=== PATIENT | male | born 1980 | race Caucasian/White ===

== ENCOUNTER 2019-01-05 19:00 | Emergency (ER) | payer MEDICAID, OTHER ==
[2019-01-05] MEDS ORDERED: Ketorolac 30 MG/ML SDV IVPUSH ONE (19:18)
[2019-01-05] MEDS ORDERED: Sodium Chloride 0.9% 10 ML Syringe FLUSH PRN (19:18)
[2019-01-05] MEDS ORDERED: Sodium Chloride 0.9% 1,000 ML IV ONE ×2 (19:18→20:40)
--- NOTE | 2019-01-05 19:29 | EDM.PDOC ---
ED HPI GENERAL MEDICAL PROBLEM - General Chief Complaint: General Stated Complaint: Possible kidney stone/right flank pain Time Seen by Provider: 01/05/19 19:15 Source of Information: Reports: Patient History Limitations: Reports: No Limitations - History of Present Illness INITIAL COMMENTS - FREE TEXT/NARRATIVE: 38 YO WM presents to ER complaining of right flank pain with hematuria which began this am. Pt reports he woke this am with hematuria and mild right flank pain but as the day progressed he developed more severe pain with episode of vomiting. Pt reports history of kidney stones and opioid abuse. Pt recently stoned methadone approximately 14 days ago. Pt denies any fever/chills, no abdominal pain, no testicular pain. Discussed trying to avoid opioids due to substance abuse issues but after Toradol/Ativan patient in much discomfort prompting dilaudid administration. Onset: Today Location: Reports: Back Quality: Reports: Dull, Sharp Severity: Severe Improves with: Reports: None Worsens with: Reports: None Associated Symptoms: Reports: No Other Symptoms, Nausea/Vomiting. Denies: Fever /Chills Right Lower Posterior Flank Pain Score (Numeric/FACES): 5 - Related Data Allergies Allergy/AdvReac Type Severity Reaction Status Date / Time No Known Drug Allergies Allergy Cannot Verified 01/05/19 20:00 Remember Home Meds: Home Meds Cephalexin [Keflex] 500 mg PO TID #40 capsule 01/05/19 [Rx] Phenazopyridine [Pyridium] 200 mg PO TID #6 tab 01/05/19 [Rx] ED ROS GENERAL - Review of Systems Review Of Systems: See Below Constitutional: Reports: No Symptoms HEENT: Reports: No Symptoms Respiratory: Reports: No Symptoms Cardiovascular: Reports: No Symptoms Endocrine: Reports: No Symptoms GI/Abdominal: Reports: Nausea, Vomiting : Reports: Flank Pain, Hematuria Musculoskeletal: Reports: Back Pain Skin: Reports: No Symptoms Neurological: Reports: No Symptoms Psychiatric: Reports: No Symptoms Hematologic/Lymphatic: Reports: No Symptoms Immunologic: Reports: No Symptoms ED EXAM, GENERAL - Physical Exam Exam: See Below Exam Limited By: No Limitations General Appearance: Alert, WD/WN, Moderate Distress Head: Atraumatic, Normocephalic Neck: Normal Inspection, Supple, Non-Tender, Full Range of Motion Respiratory/Chest: No Respiratory Distress, Lungs Clear, Normal Breath Sounds, No Accessory Muscle Use, Chest Non-Tender Cardiovascular: Normal Peripheral Pulses, Regular Rate, Rhythm, No Edema, No Gallop, No JVD, No Murmur, No Rub GI/Abdominal: Normal Bowel Sounds, Soft, Non-Tender, No Organomegaly, No Distention, No Abnormal Bruit, No Mass Back Exam: Full Range of Motion, CVA Tenderness (R) Extremities: Normal Inspection, Normal Range of Motion, Non-Tender, Normal Capillary Refill, No Pedal Edema Neurological: Alert, Oriented, CN II-XII Intact, Normal Cognition, Normal Gait, Normal Reflexes, No Motor/Sensory Deficits Psychiatric: Normal Affect, Normal Mood Skin Exam: Warm, Dry, Intact, Normal Color, No Rash Lymphatic: No Adenopathy Course - Vital Signs Last Recorded V/S: Last Vital Signs Temp 36.9 C 01/05/19 19:11 Pulse 118 H 01/05/19 19:11 Resp 22 H 01/05/19 19:11 BP 158/91 H 01/05/19 19:11 Pulse Ox 98 01/05/19 19:11 - Orders/Labs/Meds Orders: Active Orders 24 hr Category Date Time Status Peripheral IV Care [RC] . DIRECTED Care 01/05/19 19:18 Active CULTURE URINE [RM] Stat Lab 01/05/19 21:08 Ordered Sodium Chloride 0.9% [Normal Saline] 1,000 ml Med 01/05/19 20:40 Active IV .BOLUS Sodium Chloride 0.9% [Saline Flush] Med 01/05/19 19:18 Active 10 ml FLUSH Q8HR PRN Peripheral IV Insertion Adult [OM.PC] Routine Oth 01/05/19 19:18 Ordered Medication Orders Sodium Chloride (Normal Saline) 1,000 mls @ 999 mls/hr IV .BOLUS ONE Stop: 01/05/19 21:40 Last Admin: 01/05/19 20:45 Dose: 999 mls/hr Sodium Chloride (Saline Flush) 10 ml FLUSH Q8HR PRN PRN Reason: keep vein open Labs: Laboratory Tests 01/05/19 01/05/19 01/05/19 Range/Units 19:30 19:30 20:00 WBC 9.35 (5.00-10.00) 10^3/uL RBC 4.76 (4.50-6.00) 10^6/uL Hgb 14.5 (13.0-17.0) g/dL Hct 40.1 (40.0-52.0) % MCV 84.2 (82.0-92.0) fL MCH 30.5 (27.0-31.0) pg MCHC 36.2 H (32.0-36.0) g/dL RDW 11.9 (11.5-14.5) % Plt Count 280 (150-400) 10^3/uL MPV 10.7 H (7.4-10.4) fL Immature Gran % (Auto) 0.1 (0.0-5.0) % Neut % (Auto) 60.6 (50.0-70.0) % Lymph % (Auto) 32.4 (20.0-40.0) % [place] % (Auto) 6.5 (2.0-8.0) % Eos % (Auto) 0.2 L (1.0-3.0) % Baso % (Auto) 0.2 (0.0-1.0) % Immature Gran # (Auto) 0.01 (0.00-0.50) 10^3/uL Neut # (Auto) 5.66 (2.50-7.00) 10^3/uL Lymph # (Auto) 3.03 (1.00-4.00) 10^3/uL [place] # (Auto) 0.61 (0.10-0.80) 10^3/uL Eos # (Auto) 0.02 L (0.10-0.30) 10^3/uL Baso # (Auto) 0.02 (0.00-0.10) 10^3/uL Sodium 145 (136-145) mmol/L Potassium 3.4 (3.3-5.3) mmol/L Chloride 108 (98-115) mmol/L Carbon Dioxide 23.3 (21.0-32.0) mmol/L Anion Gap 17.1 H (5-15) mmol/L BUN 7 (6-25) mg/dL Creatinine 0.95 (0.51-1.17) mg/dL Est Cr Clr Drug Dosing 106.73 mL/min Estimated GFR (MDRD) > 60 mL/min Glucose 109 H (75 - 99) mg/dL Calcium 9.2 (8.7-10.3) mg/dL Specimen Type Urinvoid Urine Color Dark yellow H (YELLOW) Urine Appearance Clear (CLEAR) Urine pH 5.5 (5.0-9.0) Ur Specific [place] >= 1.030 (1.005-1.030) Urine Protein 100 H (NEGATIVE) mg/dL Urine Glucose (UA) Negative (NEGATIVE) mg/dL Urine Ketones Negative (NEGATIVE) mg/dL Urine Occult Blood Large H (NEGATIVE) Urine Nitrite Negative (NEGATIVE) Urine Bilirubin Moderate H (NEGATIVE) Urine Urobilinogen 1.0 (0.2-1.0) E.U./dL Ur Leukocyte Esterase Negative (NEGATIVE) Urine RBC 5-10 H (0-5) /HPF Urine WBC 0-5 (0-5) /HPF Amorphous Sediment Moderate H (0/HPF) /HPF Urine Bacteria Moderate H (NONE TO FEW) /HPF Urine Mucus Many H (NEGATIVE) /LPF Meds: Medications Generic Name Dose Route Start Last Admin Trade Name Brynn PRN Reason Stop Dose Admin Sodium Chloride 1,000 mls @ 999 mls/hr 01/05/19 20:40 01/05/19 20:45 Normal Saline IV 01/05/19 21:40 999 mls/hr .BOLUS ONE Administration Sodium Chloride 10 ml 01/05/19 19:18 Saline Flush FLUSH Q8HR PRN keep vein open Discontinued Medications Generic Name Dose Route Start Last Admin Trade Name Frealison PRN Reason Stop Dose Admin Cephalexin 500 mg 01/05/19 21:06 Keflex PO 01/05/19 21:07 ONETIME ONE Hydromorphone HCl 1 mg 01/05/19 20:10 01/05/19 20:24 Dilaudid IVPUSH 01/05/19 20:11 1 mg ONETIME ONE Administration Sodium Chloride 1,000 mls @ 999 mls/hr 01/05/19 19:18 01/05/19 19:30 Normal Saline IV 01/05/19 20:18 999 mls/hr .BOLUS ONE Administration Ketorolac Tromethamine 30 mg 01/05/19 19:18 01/05/19 19:30 Toradol IVPUSH 01/05/19 19:19 30 mg ONETIME ONE Administration Lorazepam 1 mg 01/05/19 19:37 01/05/19 19:45 Ativan IVPUSH 01/05/19 19:38 1 mg ONETIME ONE Administration Phenazopyridine HCl 100 mg 01/05/19 21:06 Pyridium PO 01/05/19 21:07 BID ONE Departure - Departure Time of Disposition: 21:10 Disposition: Home, Self-Care 01 Condition: Good Clinical Impression: UTI, Urinary tract infectious disease, Flank pain, acute - Discharge Information Prescriptions: Cephalexin [Keflex] 500 mg PO TID #40 capsule Phenazopyridine [Pyridium] 200 mg PO TID #6 tab Instructions: Urinary Tract Infection, Adult, [id number] Forms: ED Department Discharge - My Orders Last 24 Hours: My Active Orders 01/05/19 19:18 Peripheral IV Care [RC] . DIRECTED Sodium Chloride 0.9% [Saline Flush] 10 ml FLUSH Q8HR PRN Peripheral IV Insertion Adult [OM.PC] Routine 01/05/19 20:40 Sodium Chloride 0.9% [Normal Saline] 1,000 ml IV .BOLUS 01/05/19 21:08 CULTURE URINE [RM] Stat - Assessment/Plan Last 24 Hours: My Active Orders 01/05/19 19:18 Peripheral IV Care [RC] . DIRECTED Sodium Chloride 0.9% [Saline Flush] 10 ml FLUSH Q8HR PRN Peripheral IV Insertion Adult [OM.PC] Routine 01/05/19 20:40 Sodium Chloride 0.9% [Normal Saline] 1,000 ml IV .BOLUS 01/05/19 21:08 CULTURE URINE [RM] Stat Assessment:: 1. right flank pain 2. urinary tract infection Plan: 1. discharge home 2. kelfex 500mg PO TID x 10 days #30 3. pyridium 200mg PO TID PRN #6
[2019-01-05] MEDS ORDERED: LORazepam 2 MG/ML SDV IVPUSH ONE (19:37)
[2019-01-05 19:59] LABS: ANION GAP 17.1 mmol/L (5-15); CHLORIDE,CL 108 mmol/L (98-115); SODIUM,NA 145 mmol/L (136-145)
[2019-01-05] MEDS ORDERED: HYDROmorphone 1 MG/ML Syringe IVPUSH ONE (20:10)
--- NOTE | 2019-01-05 20:56 | CT ---
[id number] CT/CT Abdomen Pelvis WO IV EXAM: CT Abdomen Pelvis WO IV CLINICAL DATA: RIGHT SIDED BACK FLANK PAIN COMPARISON STUDY: May 2012. FINDINGS: Lung bases are clear. Liver, spleen, gallbladder, pancreas, adrenal glands, and kidneys are unremarkable. No urinary tract calculi or hydronephrosis. No bowel obstruction or inflammation. Appendix is normal. Lymphadenopathy in the abdomen or pelvis. No free fluid or fluid collections. Urinary bladder is unremarkable. Mild/moderate changes of spondylosis throughout the spine. Moderate bilateral femoroacetabular osteoarthritis. No fracture or osseous lesion. IMPRESSION: No significant abnormality in the abdomen or pelvis. Matt Knutson MD 01/05/19 1567 Thank you for allowing us to participate in the care of your patient.
[2019-01-05] MEDS ORDERED: Phenazopyridine 100 MG Tab PO ONE (21:06)
[2019-01-05] MEDS ORDERED: Cephalexin 250 MG Cap PO ONE (21:06)
[2019-01-05] MEDS ORDERED: Acetaminophen/HYDROcodone 325-10 MG Tab PO ONE (21:43)
== END 2019-01-05 22:55 | disposition home or self-care (01) ==
LOC: KA.ED 19:00
DX: N39.0 Urinary tract infection, site not specified (principal)
CPT/HCPCS: 36415; 74176; 80048; 81001; 85025; 87086; 96361; 96374; 96375; 99284; A9270; J1170; J1885; J2060; J7030; 99283